=== PATIENT | male | born 1970 | race Hispanic/Latino ===

== ENCOUNTER 2020-12-24 09:02 | Outpatient (CLI) | payer OTHER, SELFPAY ==
--- NOTE | ~2020-12-24 | US_ITS ---
EXAMINATION: US carotid duplex BI EXAM DATE: 12/24/2020 09:51 INDICATION: I63.9 - Cerebral infarction, unspecified. TECHNIQUE: Grayscale, color and pulsed Doppler images of the cervical carotid arteries were obtained . The degree of vessel stenosis is placed in one of the following categories: normal, <50% stenosis, 50-69% stenosis, >=70% stenosis but less than near-occlusion, near-occlusion, or occlusion. Note that percent stenosis relative to normal distal artery lumen diameter is indirectly measured from velocit y measurements as described by Jj, et al. Radiology 2003; [id number]:340-346. Comparison is made to prior examination from 02/20/2018. FINDINGS: RIGHT SIDE: Right common carotid artery peak systolic velocity (PSV in cm/s): 78 Right bulb/internal carotid artery peak systolic velocity (PSV in cm/s): 60 Right internal carotid artery end diastolic velocity (EDV in cm/s): 18 Right ICA/CCA peak systolic ratio: 0.8 Right external carotid artery peak systolic velocity (PSV in cm/s): 98 Right vertebral artery antegrade flow: yes There is mild carotid bulb plaque. Velocity and Doppler waveforms in the common and internal carotid arteries is normal. LEFT SIDE: Left common carotid artery peak systolic velocity (PSV in cm/s): 130 Left bulb/internal carotid artery peak systolic velocity (PSV in cm/s): 79 Left internal carotid artery end diastolic velocity (EDV in cm/s): 17 Left ICA/CCA peak systolic ratio: 0.8 Left external carotid artery peak systolic velocity (PSV in cm/s): 78 Left vertebral artery antegrade flow: yes IMPRESSION: 1. Less than 50 percent stenosis in the right internal carotid artery. 2. Normal left internal carotid artery. Reviewed, dictated and finalized at location B.
== END 2020-12-24 09:03 | disposition home or self-care (01) ==
PROVIDERS: PCP Family Medicine; Visit Provider Physician Assistant
DX: I63.9 Cerebral infarction, unspecified (principal); I65.21 Occlusion and stenosis of right carotid artery
CPT/HCPCS: 93880

== ENCOUNTER 2021-06-23 06:53 | Outpatient (CLI) | payer OTHER, SELFPAY ==
--- NOTE | ~2021-06-23 | CT_ITS ---
EXAMINATION: CT brain wo con DATE: 06/23/2021 07:15 INDICATION: Cerebral infarction TECHNIQUE: Computed tomography (CT) of the head was performed without intravenous contrast. The mA wa s adjusted according to patient size. Iterative reconstruction technique was employed. Exam dose: 68 1.00 mGy-cm total exam DLP. COMPARISON: August 07, 2018 CT brain FINDINGS: Again noted is a dense approximately 4.8 x 5.7 mm calcification of the left side of the razia s, unchanged since August 07, 2018. No intracranial mass lesion or hemorrhage or recent cerebrovascular accident is detected. No midline shift or mass effect effect. Normal ventricular size. No subdural or epidural tumor. Paranasal sinuses and mastoid air cells are unremarkable. No fracture or bone destruction of the cranial vault. IMPRESSION: Chronic dense left abel calcification No acute intracranial finding Reviewed, dictated and finalized at Location A. Reviewed, dictated and finalized at location A. ATIONS SUPPORT ANALYST
== END 2021-06-23 06:54 | disposition home or self-care (01) ==
PROVIDERS: PCP Family Medicine; Visit Provider Physician Assistant
DX: I63.9 Cerebral infarction, unspecified (principal); R47.81 Slurred speech
CPT/HCPCS: 70450

== ENCOUNTER 2021-07-26 08:14 | Outpatient (CLI) | payer OTHER, SELFPAY ==
--- NOTE | ~2021-07-26 | MR_ITS ---
EXAMINATION: MR brain/brain stem wo/w con EXAM DATE: 07/26/2021 09:33 INDICATION: I63.9 - Cerebral infarction, unspecified. TECHNIQUE: Magnetic resonance imaging (MRI) of the brain/brain stem obtained without contrast. Sagit omega T1, axial diffusion, gradient echo (T2*), T1, T2, FLAIR sequences obtained. Patient was then inj ected with 16 cc intravenous Multihance contrast. Axial and coronal postcontrast T1 weighted sequence s obtained. Comparison is made to prior examination from 02/20/2018. FINDINGS: Again there is left pontine signal in location of dystrophic calcification seen on CT. Old right internal capsular lacunar infarction. There are no areas of restricted diffusion to suggest acu te infarction. There is no acute hemorrhage seen on the T2*, a hemosiderin sensitive sequence. No i ntraparenchymal brain mass. The ventricles are normal in size. There are no extra-axial collections. Flow voids are seen in the cerebral arteries on the T2-weighted sequences consistent with their exp ected patency. The orbits are unremarkable. Soft tissue is unremarkable. There are no areas of ab normal enhancement on the postcontrast images. IMPRESSION: 1. No acute intracranial findings. 2. Interval expected evolution of chronic punctate right internal capsular lacunar infarction. Reviewed, dictated and finalized at location B. LATION WORKER APPRENTICE IMPRESSION: 1. No acute intracranial findings. 2. Interval expected evolution of chronic punctate right internal capsular lac unar infarction.
[2021-07-26 08:46] LABS: Estimated Glomerular Filt Rate > 60
== END 2021-07-26 08:15 | disposition home or self-care (01) ==
LOC: ANHIMG 08:18
PROVIDERS: PCP Family Medicine; Visit Provider Psychiatry & Neurology Neurology
DX: I63.9 Cerebral infarction, unspecified (principal)
CPT/HCPCS: 70553; A9577

== ENCOUNTER 2022-01-07 15:14 | Emergency (ER) | payer OTHER, SELFPAY ==
--- NOTE | ~2022-01-07 | CT_ITS ---
EXAMINATION: CT brain wo con DATE: 01/07/2022 15:42 INDICATION: facial droop/WASP STING X 2 TIMES previous cva- 4 YEARS AGO . TECHNIQUE: Computed tomography (CT) of the head was performed without intravenous contrast. The mA wa s adjusted according to patient size. Iterative reconstruction technique was employed. The dose-lengt h product was 605.33 mGy-cm. COMPARISON: 06/23/2021. FINDINGS: No acute intracranial hemorrhage or extra-axial fluid collection. No hydrocephalus, mass, or herniation. No acute ischemic infarct. Unremarkable dural venous sinus attenuation. No acute osseous abnormality. The aerated spaces are clear. Stable chronic left pontine calcification. IMPRESSION: No acute intracranial process. Reviewed, dictated and finalized at location K.
--- NOTE | ~2022-01-07 | XR_ITS ---
EXAMINATION: XR chest 1V portable Exam Date/Time: 01/07/2022 15:50 CDT HISTORY: POSSIBLE CVA, HX STROKE 4 YEARS AGO Comparison: None available. RESULT: Lines, tubes, and devices: None. Lungs and pleura: Clear. Cardiomediastinal silhouette: Normal. Other: No acute osseous or upper abdominal finding. IMPRESSION: No acute cardiopulmonary process. Reviewed, dictated and finalized at location K.
[2022-01-07 15:19] VITALS: PULSE 68; RESP 16; TEMP 36.8; O2SAT 100
--- NOTE | 2022-01-07 15:19 | ECG_ITS ---
Measurements Intervals [place] Rate: 63 P: 43 WV: 164 QRS: 2 QRSD: 98 T: 70 QT: 374 QTc: 386 Interpretive Statements SINUS RHYTHM INCOMPLETE RIGHT BUNDLE BRANCH BLOCK LEFT VENTRICULAR HYPERTROPHY AND ST-T CHANGE CANNOT RULE OUT SEPTAL INFARCT, AGE INDETERMINATE MINIMAL Q WAVES- HIGH LATERAL LEADS BORDERLINE ST-T WAVE ABNORMALITY- ANTEROLAT/INF LEADS ABNORMAL ECG Electronically Signed On 01-07-2022 17:06:40 CDT by Garett Caraballo D.O.
[2022-01-07 15:22] LABS: Glucose Point of Care 211 mg/dl (65-105)
[2022-01-07 15:24] VITALS: BP 190/74
--- NOTE | 2022-01-07 15:30 | ED.NEUROSD ---
HPI - Neuro Symptoms/Deficit General Chief Complaint: Suspected CVA Stated Complaint: right facial numbness Time Seen by Provider: 01/07/22 15:30 Source: patient Mode of arrival: ambulatory Limitations: no limitations History of Present Illness HPI Narrative: Patient is 51 years old male came to the emergency room from home complaining of numbness and fullness of the right side of the face noticed by his 2 hours ago. Patient denies any other focal neurodeficit.. Patient reports that he was stung by a wasp twice over the last 2 to 3 days to the right side of the chest with a slight itching and discomfort at that site. Today got up from sleep, his did not see him and to start working at the backyard, once he got inside the house his noticed that he have weird looking right face. Patient had history of stroke 4 years ago with left hemiplegia and a complete recovery. The patient and his got worried about possible another stroke. He denies any fever, chills, nausea, vomiting, headache, focal neurodeficit. Also he denies any pain in the teeth or difficulty opening his eyes or drooling saliva or trouble swallowing or trouble test food Related Data Allergies Allergy/AdvReac Type Severity Reaction Status Date / Time No Known Allergies Allergy Verified 01/07/22 15:23 Review of Systems Review of Systems: All systems reviewed & are unremarkable except as noted in HPI and below PMFSH Surgical History Surgical History S/P LASIK (laser assisted in situ keratomileusis) Family History Family History Mother Hypertension Father Family history of diabetes mellitus in first degree relative Social History Social History Smoking status: Never smoker Second hand tobacco smoke exposure: No Alcohol intake: never Substance use: never Substance use type: does not use Gender identity (if verbalized by the patient): Male Sexual Orientation (if Verbalized by the Patient): Straight or Heterosexual Spiritual care concerns: No Exam Narrative: General appearance: Well-developed, well-nourished Skin: Normal color, right face showed slight swelling of the right cheek, soft touch, no local tenderness, no rash, no erythema. Head: Normocephalic, nontraumatic Eyes: Clear conjunctiva ENT: Oropharynx normal, ears normal, nose normal, no dental tenderness or abnormality Neck: Supple, nontender Chest and respiratory: Airway patent, no respiratory distress, no accessory muscle use Heart: Regular rate/rhythm Abdomen: Soft, nontender, no organomegaly, quiet bowel sounds Vascular: Normal peripheral pulses, normal capillary refill. Musculoskeletal: Normal range of motion, nontender back Neurologic: Alert and oriented ?3, BASE REMOVER is normal as tested, no gross motor deficit, no facial drooping, face is symmetrical, normal smile, Course Course Emergency Course: Allergy reaction versus early Durand's palsy. Work-up today showed no significant abnormality to explain patient condition. My plan to discharge him on prednisone which will be okay for both of Durand's palsy or allergic reaction. Vital Signs Vital signs: Vital Signs Temperature 36.8 C 01/07/22 15:19 Pulse Rate 68 01/07/22 15:19 Respiratory Rate 16 01/07/22 15:19 Pulse Oximetry 100 01/07/22 15:19 Temperature 36.8 C 01/07/22 15:19 Pulse Rate 68 01/07/22 15:19 Respiratory Rate 16 01/07/22 15:19 Blood Pressure 190/74 H 01/07/22 15:24 Pulse Oximetry 100 01/07/22 15:19 MDM - Neuro Symptoms/Deficit
[2022-01-07 15:34] LABS: Basophils Percent Auto 0.6 % (0.2-1.2); Eosinophils Absolute Auto 0.2 K/mm3 (0-0.3); Hematocrit 42.1 % (42.0-52.0); Hemoglobin 14.2 g/dL (14.0-18.0); Immature Granulocyte Absolute 0.01 K/mm3 (0.00-0.031); Immature Granulocyte Percent A 0.2 % (0-0.5); Lymphocytes Percent Auto 34.5 % (18.3-44.2); Mean Corpuscular HGB Conc 33.7 g/dl (32-36); Mean Corpuscular Hemoglobin 29.6 pg (26-34); Mean Corpuscular Volume 87.9 fl (80-100); Mean Platelet Volume 11.4 fl (7.4-10.4); Monocytes Absolute Auto 0.5 K/mm3 (0.1-0.6); Neutrophils Absolute Auto 3.4 K/mm3 (1.3-6.7); Neutrophils Percent Auto 53.7 % (45.5-73.1); Platelet Count Result 164 k/mm3 (150-375); Red Blood Count 4.79 M/mm3 (4.6-6.20); Red Cell Distribution Width 11.8 % (11.5-14.5); White Blood Count 6.4 K/mm3 (4.5-10.0)
[2022-01-07 15:43] LABS: Prothrombin Time 12.8 Seconds (11.1-14.7)
[2022-01-07 15:44] LABS: Partial Thromboplastin Time 25.8 SECONDS (22.3-36.8)
[2022-01-07 15:45] LABS: Alanine Aminotransferase 33 U/L (6-50); Albumin Level 5.1 g/dL (3.5-5.1); Alkaline Phosphatase 81 U/L (38-126); Anion Gap 5 mmol/L (8-16); Aspartate Amino Transferase 31 U/L (17-59); Bilirubin,Total 0.4 mg/dL (0.2-1.3); Blood Urea Nitrogen 14 mg/dL (9-20); Calcium 9.3 mg/dL (8.4-10.2); Carbon Dioxide 34 mmol/L (22-30); Chloride 101 mmol/L (98-107); Estimated CRCL calculation 103 ml/min; Estimated Glomerular Filt Rate > 60; Glucose 202 mg/dL (65-110); Potassium 3.7 mmol/L (3.4-5.0); Sodium 140 mmol/L (137-145)
[2022-01-07 15:56] LABS: Troponin I < 0.012 ng/mL (0.000-0.034)
[2022-01-07 16:18] VITALS: BP 183/77; PULSE 59; RESP 19; O2SAT 98
== END 2022-01-07 16:19 | disposition home or self-care (01) ==
PROVIDERS: Emergency Provider Emergency Medicine; PCP Family Medicine
DX: G51.0 Bell's palsy (principal); T78.40XA Allergy, unspecified, initial encounter; I45.10 Unspecified right bundle-branch block; I51.7 Cardiomegaly; R94.31 Abnormal electrocardiogram [ECG] [EKG]
CPT/HCPCS: 36415; 70450; 71045; 80053; 82948; 84484; 85025; 85610; 85730; 93005; 99284

== ENCOUNTER → 2022-12-02 08:31 | Outpatient (CLI) | payer OTHER, SELFPAY ==
--- NOTE | ~2022-12-02 | MR_ITS ---
MRI of the brain Clinical History: Headache, fatigue, cerebral infarct Technique: Axial and sagittal T1-weighted images were acquired. These were followed by axial T2-weigh delaney, diffusion weighted, gradient, and FLAIR images. COMPARISON: 07/26/2021 Findings: There is focal hemosiderin in the left abel. No other brain parenchymal signal abnormality seen. No acute infarct or acute intracranial hemorrhage evident. Ventricles and subarachnoid spaces are unremarkable. Orbits are unremarkable. Paranasal sinuses and m astoid air cells are clear. Major intracranial flow voids are intact. Sagittal midline structures are intact. IMPRESSION: No acute abnormality. Focal hemosiderin in the left abel. This could reflect sequela of prior microhemorrhage, or possibly tiny cavernoma. Reviewed, dictated and finalized at location . IMPRESSION: No acute abnormality. Focal hemosiderin in the left abel. This could reflect sequela of prior microhe morrhage, or possibly tiny cavernoma.
== END ==
PROVIDERS: PCP Family Medicine; Visit Provider Psychiatry & Neurology Neurology
DX: I63.9 Cerebral infarction, unspecified (principal)
CPT/HCPCS: 70551